=== PATIENT | male | born 1935 | race Caucasian/White ===

== ENCOUNTER 2016-08-15 15:58 | Inpatient (IN) | payer BC, MEDICARE ==
[~2016-08-15] VITALS: Ht 172.7 cm; Wt 80.8 kg
[2016-08-15 17:44] VITALS: BP 163/64; PULSE 56; TEMP 98.1
[2016-08-16] MEDS ORDERED: PLAVIX 75MG TAB75 MG PO (00:40)
[2016-08-16] MEDS ORDERED: ASPIRIN 32325 MG/TA1 PO (00:42)
[2016-08-16] MEDS ORDERED: MIRALAX PA17 GM/Dose PO (00:43)
[2016-08-16] MEDS ORDERED: DULCOLAX STOOL100 MG PO (00:43)
[2016-08-16] MEDS ORDERED: ASPIRIN E.C. 8181 MG PO (00:46)
[2016-08-16] MEDS ORDERED: ZOLOFT 25MG25 MG PO (00:47)
[2016-08-16] MEDS ORDERED: LIPITOR 40MG TA40 MG PO (00:47)
[2016-08-16] MEDS ORDERED: PRINIVIL5 MG PO (00:48)
[2016-08-16] MEDS ORDERED: CLARITIN 1010 MG/TAB PO (00:48)
[2016-08-16] MEDS ORDERED: CORTIZONE-10 MAXIM11 TP (00:51)
[2016-08-16 04:37] VITALS: BP 144/67; PULSE 60; TEMP 98.3
[2016-08-16 06:00] VITALS: BP 159/64; PULSE 63; TEMP 96.9
[2016-08-16 16:20] VITALS: BP 145/58; PULSE 56; TEMP 96.7
[2016-08-17 05:02] VITALS: BP 156/68; PULSE 55; TEMP 98.6
[2016-08-17 16:15] VITALS: BP 150/73; PULSE 74; TEMP 97.7
[2016-08-18 06:30] VITALS: BP 139/72; PULSE 61; TEMP 98.7
[2016-08-18 16:41] VITALS: BP 147/56; PULSE 57; TEMP 98.1
[2016-08-19 04:40] VITALS: BP 147/60; PULSE 56; TEMP 97.8
[2016-08-19 17:32] VITALS: BP 157/55; PULSE 59; TEMP 98.1
[2016-08-20 06:21] VITALS: BP 163/61; PULSE 62; TEMP 98.5
[2016-08-20 16:32] VITALS: BP 140/62; PULSE 62; TEMP 98.1
[2016-08-21 05:54] VITALS: BP 158/66; PULSE 66; TEMP 98.1
[2016-08-21 16:35] VITALS: BP 158/66; PULSE 63; TEMP 97.7
[2016-08-22 06:21] VITALS: BP 165/66; PULSE 66; TEMP 98.6
[2016-08-22 17:31] VITALS: BP 149/61; PULSE 62; TEMP 98.2
[2016-08-23 05:45] VITALS: BP 137/55; PULSE 75; TEMP 98.2
[2016-08-23 17:09] VITALS: BP 165/65; PULSE 73; TEMP 98.7
[2016-08-23 21:22] VITALS: BP 179/68; PULSE 88; TEMP 97.8
[2016-08-24 05:05] VITALS: BP 156/66; PULSE 68; TEMP 98.5
[2016-08-24 06:54] LABS: HEMOGLOBIN 12.4 g/dl (13.5-18.0); MEAN CELL VOLUME 104 fl (80.0-100.0); MEAN CORPUSCULAR HEMOGLOBIN 36 pg (27.0-31.0); MEAN CORPUSCULAR HGB CONC 34 g/dl (33.0-37.0); MEAN PLATELET VOLUME 9.4 fl (7.4-10.4); PLATELET COUNT 189 K/mm3 (130-400); RED BLOOD COUNT 3.46 M/mm3 (4.20-5.60); REDCELL DISTRIBUTION WIDTH-CV 14.4 % (11.5-14.5); WHITE BLOOD COUNT 8.6 K/mm3 (4.8-10.8)
[2016-08-24 07:00] LABS: HEMATOCRIT 36.1 % (42.0-52.0)
[2016-08-24 07:10] LABS: CALCIUM 8.6 mg/dL (8.4-10.2); CREATININE, serum 0.95 mg/dL (0.66-1.25); POTASSIUM 4.5 mmol/L (3.4-5.0)
[2016-08-24 16:03] VITALS: BP 142/61; PULSE 67; TEMP 98.6
[2016-08-25 04:11] VITALS: BP 169/72; PULSE 61; TEMP 99.4
[2016-08-25 18:38] VITALS: BP 146/57; PULSE 54; TEMP 97.6
[2016-08-26 05:49] VITALS: BP 148/53; PULSE 58; TEMP 97.8
[2016-08-26 16:20] VITALS: BP 144/68; PULSE 90; TEMP 97.9
[2016-08-27 05:00] VITALS: BP 135/56; PULSE 77; TEMP 98.2
[2016-08-27 16:14] VITALS: BP 163/60; PULSE 62; TEMP 98.4
[2016-08-28 05:10] VITALS: BP 163/72; PULSE 57; TEMP 98.2
[2016-08-28 17:29] VITALS: BP 161/78; PULSE 92; TEMP 98.3
[2016-08-29 04:48] VITALS: BP 165/66; PULSE 61; TEMP 97.2
[2016-08-29 17:34] VITALS: BP 150/66; PULSE 77; TEMP 97.3
[2016-08-30 04:43] VITALS: BP 141/64; PULSE 62; TEMP 97.8
[2016-08-30 16:42] VITALS: BP 157/61; PULSE 62; TEMP 98.4
[2016-08-31 05:20] VITALS: BP 155/63; PULSE 56; TEMP 98.6
[2016-08-31 16:13] VITALS: BP 134/57; PULSE 61; TEMP 98.6
[2016-09-01 05:16] VITALS: BP 160/72; PULSE 57; TEMP 98.9
[2016-09-01 16:10] VITALS: BP 149/63; PULSE 64; TEMP 98.7
[2016-09-02 05:34] VITALS: BP 157/60; PULSE 54; TEMP 98.6
[2016-09-02 18:23] VITALS: BP 161/58; PULSE 75; TEMP 98.5
[2016-09-03 05:44] VITALS: BP 154/60; PULSE 85; TEMP 98.3
[2016-09-03 16:09] VITALS: BP 153/61; PULSE 60; TEMP 98
[2016-09-04 04:53] VITALS: BP 143/59; PULSE 56; TEMP 97.4
[2016-09-04 17:17] VITALS: BP 139/68; PULSE 85; TEMP 98.6
[2016-09-05 05:28] VITALS: BP 132/62; PULSE 76; TEMP 97.8
[2016-09-05 18:31] VITALS: BP 129/67; PULSE 75; TEMP 98.8
[2016-09-06 05:53] VITALS: BP 141/51; PULSE 71; TEMP 98.1
[2016-09-06 17:19] VITALS: BP 151/60; PULSE 68; TEMP 98.3
[2016-09-07 06:00] VITALS: BP 165/72; PULSE 56; TEMP 98.2
[2016-09-07 17:08] VITALS: BP 155/58; PULSE 62; TEMP 97.5
[2016-09-08 04:38] VITALS: BP 168/64; PULSE 58; TEMP 97.9
[2016-09-08 16:32] VITALS: BP 145/53; PULSE 75; TEMP 97.6
[2016-09-09 04:16] VITALS: BP 150/67; PULSE 57; TEMP 99
[2016-09-09 16:29] VITALS: BP 137/59; PULSE 64; TEMP 98.2
[2016-09-10 04:17] VITALS: BP 155/62; PULSE 54; TEMP 98.5
[2016-09-10 17:59] VITALS: BP 152/57; PULSE 61; TEMP 98.3
[2016-09-11 06:07] VITALS: BP 142/53; PULSE 56; TEMP 98
[2016-09-11] MEDS ORDERED: ZESTRIL 10MG10 MG PO (08:25)
[2016-09-11] MEDS ORDERED: TYLENOL 325MG325 MG PO (08:26)
== END 2016-09-11 18:48 | disposition home health service (06) | DRG 57 ==
PROVIDERS: Family Medicine
DX: I69.351 Hemiplegia and hemiparesis following cerebral infarction affecting right dominant side (principal); I69.322 Dysarthria following cerebral infarction; I10 Essential (primary) hypertension; I69.320 Aphasia following cerebral infarction; F32.9 Major depressive disorder, single episode, unspecified
CPT/HCPCS: 99222-AI; 99232-AI; 99239; A9284

== ENCOUNTER 2016-12-10 13:01 | Inpatient (IN) | payer MEDICARE, BC ==
[~2016-12-10] VITALS: Ht 172.7 cm; Wt 80.0 kg
[~2016-12-10 13:01] MED LIST: ASPIRIN 81M81 MG/TA2 PO; ASPIRIN E.C. 8181 MG PO; CLARITIN 1010 MG/TAB PO; CORTIZONE-10 MAXIM11 TP; DULCOLAX STOOL100 MG PO; LIPITOR 40MG TA40 MG PO; MIRALAX PA17 GM/Dose PO; PLAVIX 75MG TAB75 MG PO; PRINIVIL5 MG PO; TYLENOL 325MG325 MG PO; ZESTRIL 10MG10 MG PO; ZOLOFT 50MG50 MG PO
[2016-12-10 13:09] VITALS: BP 159/70; PULSE 60; TEMP 97.4
[2016-12-10] MEDS ORDERED: PROTONIX 40MG T40 MG PO (14:43)
[2016-12-10] MEDS ORDERED: ZESTRIL 20MG TA20 MG PO (14:44)
[2016-12-10] MEDS ORDERED: MYLICON 8080 MG/TAB. PO (14:47)
[2016-12-10 17:23] VITALS: BP 159/70; PULSE 62; TEMP 97.4
[2016-12-10 17:24] VITALS: BP 150/70; PULSE 62; TEMP 97.4
[2016-12-10 18:04] VITALS: BP 159/70; PULSE 62; TEMP 97.4
[2016-12-11 06:42] VITALS: BP 165/78; PULSE 53; TEMP 98.3
[2016-12-11 16:09] VITALS: BP 183/65; PULSE 58; TEMP 97.9
[2016-12-12 04:18] VITALS: BP 169/72; PULSE 57; TEMP 97.9
[2016-12-12 17:18] VITALS: BP 152/55; PULSE 63; TEMP 98.1
[2016-12-13 06:14] VITALS: BP 148/70; PULSE 62; TEMP 97.7
[2016-12-13 16:09] VITALS: BP 138/69; PULSE 75; TEMP 98.6
[2016-12-14 04:27] VITALS: BP 178/84; PULSE 61; TEMP 97.4
[2016-12-14 17:10] VITALS: BP 138/58; PULSE 59; TEMP 97.9
[2016-12-15 05:44] VITALS: BP 166/56; PULSE 57; TEMP 98.3
[2016-12-15 16:15] VITALS: BP 156/60; PULSE 59; TEMP 97.6
[2016-12-16 04:19] VITALS: BP 156/68; PULSE 52; TEMP 98
[2016-12-16 17:26] VITALS: BP 148/77; PULSE 93; TEMP 98.5
[2016-12-17 05:34] VITALS: BP 160/66; PULSE 60; TEMP 98.4
[2016-12-17 16:28] VITALS: BP 148/65; PULSE 71; TEMP 98.1
[2016-12-18 06:25] VITALS: BP 157/58; PULSE 76; TEMP 99.8
[2016-12-18 16:47] VITALS: BP 139/66; PULSE 80; TEMP 97.5
[2016-12-19 05:47] VITALS: BP 153/59; PULSE 59; TEMP 98.1
[2016-12-19 17:30] VITALS: BP 152/65; PULSE 78; TEMP 97.6
[2016-12-20 06:49] VITALS: BP 183/64; PULSE 58; TEMP 98.8
[2016-12-20 18:10] VITALS: BP 135/64; PULSE 87; TEMP 98.2
[2016-12-21 05:12] VITALS: BP 156/68; PULSE 57; TEMP 97.8
[2016-12-21 16:54] VITALS: BP 155/63; PULSE 60; TEMP 98
[2016-12-22 06:00] VITALS: BP 188/76; PULSE 55; TEMP 97.5
[2016-12-22 16:30] VITALS: BP 144/65; PULSE 58; TEMP 98.6
[2016-12-23 05:33] VITALS: BP 141/48; PULSE 58; TEMP 98.5
[2016-12-23 16:21] VITALS: BP 155/67; PULSE 63; TEMP 98
[2016-12-24 05:16] VITALS: BP 149/54; PULSE 55; TEMP 97.4
[2016-12-24 16:37] VITALS: BP 143/59; PULSE 61; TEMP 97.9
[2016-12-25 03:20] VITALS: BP 158/56; PULSE 62; TEMP 98.3
[2016-12-25 16:23] VITALS: BP 148/60; PULSE 60; TEMP 98
[2016-12-26 05:16] VITALS: BP 158/62; PULSE 61; TEMP 98.1
[2016-12-26 16:59] VITALS: BP 160/80; PULSE 90; TEMP 99.4
[2016-12-26 18:42] VITALS: BP 160/63; PULSE 61
[2016-12-27 04:49] VITALS: BP 160/55; PULSE 54; TEMP 98.6
[2016-12-27 06:22] LABS: BASO % 0.6 % (0.0-2.0); EOS # 0.5 (0.0-0.7); GRAN # 2.3 (1.4-6.5); HEMATOCRIT 37.2 % (42.0-52.0); HEMOGLOBIN 12.4 g/dl (13.5-18.0); LYMPH # 1.9 (1.2-3.4); LYMPH % 36.3 % (20.0-51.0); MEAN CELL VOLUME 105 fl (80.0-100.0); MEAN CORPUSCULAR HEMOGLOBIN 35 pg (27.0-31.0); MEAN CORPUSCULAR HGB CONC 33 g/dl (33.0-37.0); MEAN PLATELET VOLUME 9.6 fl (7.4-10.4); MONO # 0.6 (0.1-0.6); MONO % 10.5 % (1.7-9.3); PLATELET COUNT 174 K/mm3 (130-400); RED BLOOD COUNT 3.54 M/mm3 (4.20-5.60); WHITE BLOOD COUNT 5.2 K/mm3 (4.8-10.8)
[2016-12-27 06:57] LABS: CALCIUM 8.8 mg/dL (8.4-10.2); CREATININE, serum 1.1 mg/dL (0.66-1.25); POTASSIUM 4.5 mmol/L (3.4-5.0)
[2016-12-27 18:43] VITALS: BP 125/51; PULSE 82; TEMP 98.3
[2016-12-28 06:00] VITALS: BP 131/67; PULSE 60; TEMP 98.5
[2016-12-28 16:54] LABS: COLLECTION METHOD CLEAN CATCH
[2016-12-28 17:23] VITALS: BP 146/52; PULSE 55; TEMP 98.6
[2016-12-28 17:38] LABS: MUCOUS Present /lpf; PH 5 (5-8); SQUAMOUS EPITHELIAL None Seen /hpf; URINE APPEARANCE Clear; URINE BACTERIA None Seen /hpf; URINE BILIRUBIN Negative (NEGATIVE); URINE BLOOD Negative (NEGATIVE); URINE COLOR Yellow; URINE GLUCOSE Negative (NEGATIVE); URINE KETONE Negative (NEGATIVE); URINE LEUKOCYTE ESTERASE Negative (NEGATIVE); URINE PROTEIN(semi-quant) Negative (NEGATIVE); URINE RBC 0-2 /hpf; URINE UROBILINOGEN Negative (NEGATIVE); URINE WBC 0-2 /hpf
[2016-12-29 06:45] VITALS: BP 164/63; PULSE 55; TEMP 98.6
[2016-12-29 17:13] VITALS: BP 175/58; PULSE 52; TEMP 97.8
[2016-12-30 05:41] VITALS: BP 158/55; PULSE 55; TEMP 98.5
[2016-12-30 15:16] VITALS: BP 133/62; PULSE 54; TEMP 97.9
[2016-12-31 06:03] VITALS: BP 174/91; PULSE 56; TEMP 97.2
[2016-12-31] MEDS ORDERED: ZESTRIL 20MG TA20 MG PO (11:59)
[2016-12-31] MEDS ORDERED: LOPRESSOR 225 MG/TAB PO (11:59)
== END 2016-12-31 15:40 | DRG 57 ==
PROVIDERS: Family Medicine; Nurse Practitioner Family
DX: I69.354 Hemiplegia and hemiparesis following cerebral infarction affecting left non-dominant side (principal); I69.351 Hemiplegia and hemiparesis following cerebral infarction affecting right dominant side; E44.0 Moderate protein-calorie malnutrition; I10 Essential (primary) hypertension; F32.9 Major depressive disorder, single episode, unspecified
CPT/HCPCS: 99222-AI; 99232-AI; 99239; J1650